=== PATIENT | male | born 1960 | race Two or more races ===

== ENCOUNTER 2018-06-27 09:19 | Outpatient (CLI) | payer OTHER | END 2018-06-27 09:30 | disposition home or self-care (01) | LOC: RAD 09:19 | DX: K62.5 Hemorrhage of anus and rectum (principal); K62.89 Other specified diseases of anus and rectum; K60.3 Anal fistula ==

== ENCOUNTER 2018-06-30 06:28 | Day surgery (SDC) | payer OTHER ==
[2018-06-30] MEDS ORDERED: PERCOCET 5-3251 EACH PO (09:41)
[2018-06-30] MEDS ORDERED: COLACE100 MG PO (09:41)
== END 2018-06-30 15:40 | disposition home or self-care (01) ==
LOC: CIR.AMB 06:28
DX: K60.3 Anal fistula (principal)

== ENCOUNTER 2018-09-22 06:41 | Day surgery (SDC) | payer OTHER ==
[~2018-09-22 06:41] MED LIST: COLACE100 MG PO; PERCOCET 5-3251 EACH PO
[2018-09-22] MEDS ORDERED: COLACE100 MG PO (09:48)
[2018-09-22] MEDS ORDERED: ULTRACET PO (09:48)
== END 2018-09-22 16:25 | disposition home or self-care (01) ==
LOC: CIR.AMB 06:41 → LAB 10:28 → CIR.AMB 16:25
DX: K60.3 Anal fistula (principal)